=== PATIENT | male | born 1980 | race Caucasian/White ===

== ENCOUNTER → 2016-12-07 | Outpatient (CLI) | payer BC ==
[2016-12-07] MEDS: GADOBUTROL 10 MMOL/10 ML VIAL IV ONE (09:00)
--- NOTE | 2016-12-07 10:23 | KCIC ---
INDICATION: Low back pain. Bilateral leg pain. CML. TECHNIQUE: Sagittal T1, sagittal T2, sagittal STIR, sagittal postcontrast, axial T1, axial T2, and axial postcontrast sequences are provided. 8 mL of intravenous Gadavist was administered without complication. Comparison is from August 16, 2008. FINDINGS: There is diffuse decrease in marrow signal compatible with the provided history of CML. There is no discrete marrow lesion. There is endplate edema which is presumably degenerative with some associated enhancement at L4-L5. Small Schmorl's node in the superior endplate of L5 is noted at the center of this edema. There is diffuse disc desiccation. There is mild narrowing of disc height at L5-S1. Conus medullaris is normal in signal intensity and in position. The numbering system assumes 5 lumbar type vertebral bodies. Findings by individual level are as follows: L1-L2: Mild disc bulge is noted along with minimal ligamentum flavum hypertrophy. There is no canal or foraminal compromise. Findings are minimally increased from prior. L2-L3: There is a diffuse disc bulge. There is mild ligamentum flavum hypertrophy. There is no canal or foraminal compromise. Small central herniation noted on prior study has resolved. L3-L4: There is a diffuse disc bulge. There is a shallow central protrusion with annular fissure measuring 14 mm at its base and measuring 3 mm in height. There is facet hypertrophy. There is mild left lateral recess narrowing. Midline AP diameter of the thecal sac is still 10 mm. There is no foraminal compromise. Protrusion is slightly increased in size. L4-L5: There is a diffuse disc bulge and mild facet hypertrophy. There is mild canal stenosis with midline AP diameter of the thecal sac 9 mm. There is lateral recess narrowing bilaterally, could explain an L5 radiculopathy on either side. There is also foraminal narrowing which is moderate on the left and mild on the right, correlate with any left L4 radiculopathy symptoms. L5-S1: In addition to a diffuse disc bulge there is a broad-based protrusion on the left narrowing the lateral recess, measuring at least 25 mm at its base and 5 mm in height. This displaces and compresses the left S1 nerve root and would explain a left S1 radiculopathy. There is no canal stenosis. There is no high-grade foraminal narrowing. Protrusion is new or increased from prior. IMPRESSION: 1. Degenerative disc disease includes several herniations. There is also facet hypertrophy. Findings have increased at L4-L5 and L5-S1. There are findings that would explain a left L4, bilateral L5, and left S1 radiculopathy. 2. Diffusely decreased marrow signal compatible with provided history of CML. Electronically signed by: Taco Ramon MD (12/07/2016 10:19 AM) [id number]
== END | disposition home or self-care (01) ==
LOC: KCIC MRI 08:19
DX: M54.16 Radiculopathy, lumbar region (principal); M51.37 Other intervertebral disc degeneration, lumbosacral region; C92.10 Chronic myeloid leukemia, BCR/ABL-positive, not having achieved remission; M79.605 Pain in left leg; M79.604 Pain in right leg
CPT/HCPCS: 72158; A9585